=== PATIENT | male | born 1995 | race Hispanic/Latino ===

== ENCOUNTER 2016-09-22 10:14 | Emergency (ER) | payer SELFPAY ==
[~2016-09-22] VITALS: Ht 170.2 cm; Wt 90.7 kg
[~2016-09-22 10:14] MED LIST: AUGMENTIN 500M500 MG PO; BLM PO; MEDROL DOSEPAK1 PAC PO; PEPCID40 MG PO; TESSALON PERLE100 MG PO
[2016-09-22 10:21] VITALS: BP 124/73
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
[2016-09-22] MEDS ORDERED: CYCLOBENZAPRINE5 M2 PO (11:15)
== END 2016-09-22 11:27 ==
LOC: ERH 10:14
DX: S46.811A Strain of other muscles, fascia and tendons at shoulder and upper arm level, right arm, initial encounter (principal); S06.0X0A Concussion without loss of consciousness, initial encounter; V03.10XA Pedestrian on foot injured in collision with car, pick-up truck or van in traffic accident, initial encounter

== ENCOUNTER 2016-10-07 11:44 | Emergency (ER) | payer OTHER ==
[~2016-10-07] VITALS: Ht 170.2 cm; Wt 92.5 kg
[~2016-10-07 11:44] MED LIST changes: +CYCLOBENZAPRINE5 M2 PO
[2016-10-07 11:48] VITALS: BP 125/80
--- NOTE | 2016-10-07 11:58 | ED GI/GU/ABDOMINAL COMPLAINT ---
History of Present Illness General Chief Complaint: Nausea, Vomiting, Diarrhea Stated Complaint: N/V, ABDOMINAL PAIN Source: patient, family Exam Limitations: language barrier Vital Signs & Intake/Output Vital Signs & Intake/Output Vital Signs Date Time Temp Pulse Resp B/P B/P Pulse O2 O2 Flow FiO2 Mean Ox Delivery Rate 10/07 1316 97 Room Air 10/07 1148 97.3 60 20 125/80 98 Room Air Allergies Coded Allergies: NO KNOWN ALLERGIES (UNKNOWN 10/07/16) Reconcile Medications No Known Home Medications Triage Note: PT TO ED C/O N/V, ABD PAIN SINCE LAST NIGHT. DENIES DIARRHEA. Triage Nurses Notes Reviewed? yes Duration: constant Timing: recent history Quality/Severity: aching Severity Numbers: 1 Activities at Onset: eating Prior Abdominal Problems: none HPI: Patient is a 21-year-old male with an unremarkable past medical history presents to emergency him saying that yesterday for lunch patient ate pizza at approximately one hour later had acute onset of nausea and multiple episodes in last 24 hours of emesis nonbloody nonbilious. Patient's last bowel movement was today normal stool no diarrhea and no black no melena. Patient denies any significant alcohol or NSAID use. Denies any fever chills shortness of breath. Currently complains of 1/10 epigastric tenderness. Patient has not been able to tolerate anything by mouth since. (EMILY ALCOCER) Past History Travel History Traveled to [place] past 21 day No Medical History Any Pertinent Medical History? 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 No (EMILY ALCOCER) Review of Systems Review of Systems Constitutional: Reports: no symptoms. EENTM: Reports: no symptoms. Respiratory: Reports: no symptoms. Cardiovascular: Reports: no symptoms. GI: Reports: see HPI, nausea. Genitourinary: Reports: no symptoms. Musculoskeletal: Reports: no symptoms. Skin: Reports: no symptoms. Neurological/Psychological: Reports: no symptoms. Hematologic/Endocrine: Reports: no symptoms. Immunologic/Allergic: Reports: no symptoms. All Other Systems: Reviewed and Negative (EMILY ALCOCER) Physical Exam Physical Exam General Appearance: no apparent distress, alert, comfortable Gastrointestinal: normal bowel sounds, soft, EPIGASTRIC MILD TENDERNESS NO RIGHT LOWER QUADRANT PAIN NO RIGHT UPPER QUADRANT PAIN NO PERITONEAL SIGNS NO REBOUND TENDERNESS Comments: HEENT: Normal EENT exam Neck: Supple, no lymphadenopathy, normal range of motion without pain or tenderness Back: Nontender, no CVA tenderness. Cardiovascular: Regular rate and rhythms no murmurs rubs or gallops, normal JVP Respiratory: Chest nontender. No respiratory distress.breath sounds clear to auscultation bilaterally Extremity: No edema, no calf tenderness to palpation, normal and equal pulses. Neuro: Alert oriented x3, motor sensory normal, Skin: No appreciable rash on exposed skin, skin is warm and dry. Psych: Mood and affect is normal, memory and judgment is normal. Core Measures ACS in differential dx? No Severe Sepsis Present: No Septic Shock Present: No (EMILY ALCOCER) Progress Differential Diagnosis: AAA, AMI, appendicitis, biliary colic, bowel obstruction , colon cancer, cholecystitis, diverticulitis, epididymitis, esophageal varices, gastritis, hepatitis, hernia, hemorrhoids, ischemic bowel, inflamm bowel dis, orchitis, pancreatitis, prostatitis, peptic ulcer, PUD/GERD, perforated viscous, pyelonephritis, SBO, testicular torsion, ureterolithiasis, urinary retention, urethritis, UTI/pyelo Plan of Care: Orders Procedure Date/time Status LIPASE 10/07 1229 Complete COMPREHENSIVE METABOLIC PANEL 10/07 1229 Complete CBC WITHOUT DIFFERENTIAL 10/07 1229 Complete AMYLASE 10/07 1229 Complete Laboratory Tests 10/07/16 1250: Anion Gap 9, Estimated GFR > 60, BUN/Creatinine Ratio 15.5, Glucose 88, Calcium 8.8, Total Bilirubin 0.7, AST 38, ALT 85 H, Alkaline Phosphatase 86, Total Protein 7.0, Albumin 4.0, Globulin 3.0, Albumin/Globulin Ratio 1.3, Amylase 79, Lipase 110, CBC w Diff NO MAN DIFF REQ, RBC 5.49, MCV 87.3, MCH 29.5, RDW 12.8, MPV 8.6, Gran % 57.0, Lymphocytes % 31.3, Monocytes % 7.8, Eosinophils % 3.6, Basophils % 0.3, Absolute Granulocytes 4.0, Absolute Lymphocytes 2.2, Absolute Monocytes 0.5, Absolute Eosinophils 0.3, Absolute Basophils 0, PUBS MCHC 33.8 Patient currently is resting comfortable and denies any nausea and has minimal pain complaints. Patient was offered pain medications and declined. Prior to medications administered of normal saline and Zofran patient was not in his room and most likely had eloped from the emergency room. After approximately one hour patient still was not in his room Blood work was unremarkable. (EMILY ALCOCER) Initial ED EKG: none (EMILY ALCOCER) Departure Departure Disposition: ER WALKOUT Condition: Stable Clinical Impression Primary Impression: Gastritis Referrals: PATIENT HAS NO PRIMARY CARE DR (PCP/Family) Departure Forms: Customer Survey General Discharge Information Prescriptions: Current Visit Scripts No Known Home Medications (EMILY ALCOCER) PA/PHARMACOMETRICIAN Co-Sign Statement Statement: ED Attending supervision documentation- [] I saw and evaluated the patient. I have also reviewed all the pertinent lab results and diagnostic results. I agree with the findings and the plan of care as documented in the PA's/PHARMACOMETRICIAN's documentation. [X] I have reviewed the ED Record and agree with the PA's/PHARMACOMETRICIAN's documentation. [] Additions or exceptions (if any) to the PAs/PHARMACOMETRICIAN's note and plan are summarized below: [] (SAMUEL STOUT DO)
[2016-10-07 12:58] LABS: ABSOLUTE BASOPHIL COUNT 0 /CUMM (0.0-0.2); ABSOLUTE EOSINOPHIL COUNT 0.3 /CUMM (0.0-0.7); ABSOLUTE LYMPH COUNT 2.2 /CUMM (1.2-3.4); ABSOLUTE MONOCYTE COUNT 0.5 /CUMM (0.10-0.60); BASOPHIL % 0.3 % (0.0-2.0); EOSINOPHIL % 3.6 % (0-5); HEMATOCRIT 47.9 % (42-52); MEAN CORPUSCULAR HGB 29.5 PG (27.0-31.0); MEAN CORPUSCULAR HGB CONC 33.8 G/DL (33.0-37.0); MEAN CORPUSCULAR VOLUME 87.3 FL (80.0-94.0); MEAN PLATELET VOLUME 8.6 FL (7.4-10.4); PLATELET COUNT 170 /CUMM (130-400); RBC DISTRIBUTION WIDTH 12.8 % (11.5-14.5); RED BLOOD CELL CT 5.49 /CUMM (4.70-6.10); WHITE BLOOD CELL COUNT 6.9 /CUMM (4.8-10.8)
== END 2016-10-07 14:50 | disposition admitted as inpatient to this hospital (09) ==
LOC: ERH 11:44
PROVIDERS: Physician Assistant
DX: K29.70 Gastritis, unspecified, without bleeding (principal)

== ENCOUNTER 2017-10-19 21:12 | Emergency (ER) | payer SELFPAY ==
[~2017-10-19 21:12] MED LIST changes: +BENADRYL25 MG PO; +HYDROCORTISONE30 GM TOP; +LOMOTIL 2.5-0.1 EACH PO; +PEPCID20 M1 PO; +PREDNISONE10 M2 PO
[2017-10-19 23:19] LABS: ABSOLUTE BASOPHIL COUNT 0 /CUMM (0.0-0.2); ABSOLUTE EOSINOPHIL COUNT 0.3 /CUMM (0.0-0.7); ABSOLUTE LYMPH COUNT 1.9 /CUMM (1.2-3.4); ABSOLUTE MONOCYTE COUNT 0.8 /CUMM (0.10-0.60); BASOPHIL % 0.2 % (0.0-2.0); EOSINOPHIL % 3.7 % (0-5); HEMATOCRIT 45.5 % (42-52); MEAN CORPUSCULAR HGB 29.9 PG (27.0-31.0); MEAN CORPUSCULAR HGB CONC 34.2 G/DL (33.0-37.0); MEAN CORPUSCULAR VOLUME 87.3 FL (80.0-94.0); MEAN PLATELET VOLUME 8.7 FL (7.4-10.4); PLATELET COUNT 186 /CUMM (130-400); RBC DISTRIBUTION WIDTH 12.6 % (11.5-14.5); RED BLOOD CELL CT 5.21 /CUMM (4.70-6.10); WHITE BLOOD CELL COUNT 9.1 /CUMM (4.8-10.8)
--- NOTE | 2017-10-19 23:31 | ED GENERAL ADULT ---
History of Present Illness General Chief Complaint: General Adult Stated Complaint: FEVER,COUGHING,DIARRHEA X 3DAYS Source: patient Exam Limitations: no limitations Vital Signs & Intake/Output Vital Signs & Intake/Output Vital Signs Date Time Temp Pulse Resp B/P B/P Pulse O2 O2 Flow FiO2 Mean Ox Delivery Rate 10/20 0041 97.6 90 18 138/82 99 Room Air 10/19 2337 97 10/19 2119 86 151/102 10/19 2116 98.7 17 98 Room Air ED Intake and Output 10/20 0000 10/19 1200 Intake Total Output Total Balance Patient 200 lb Weight Weight Reported by Patient Measurement Method Allergies Coded Allergies: NO KNOWN ALLERGIES (UNKNOWN 10/07/16) Triage Note: PT TO ED WITH C/O DIARRHEA FOR THE PAST COUPLE WEEKS, STATES HAS BEEN SEEN FOR SAME, BUT NOW ALSO HAS FEVERS/CHILLS AND GENERALIZED BODY ACHES. Triage Nurses Notes Reviewed? yes Onset: Abrupt Duration: day(s): (3), constant, continues in ED Timing: single episode today Injury Environment: home Severity: mild, moderate No Modifying Factors: none Associated Symptoms: cough HPI: 22-year-old male with no medical history presents for evaluation of cough, congestion, shortness of breath and diarrhea. Patient states that the diarrhea has been ongoing for greater than 6 months now. He reports 3 or 4 episodes of watery diarrhea daily. He denies any blood, recent antibiotic use, sick contacts or recent travel. He has no abdominal pain nausea or vomiting. He is eating and drinking normally. Were brought him in today was the cough shortness of breath congestion and fever. He reports fevers at home which she has been taking DayQuil for with only mild improvement. Cough is productive sputum worse at night causing difficulty sleeping. He denies any chest pain, hemoptysis, lower extremity edema. He does not smoke. (Renato GUAJARDO,Tito) Reconcile Medications Albuterol Sulfate (Proair Hfa) 90 MCG HFA.AER.AD 2 PUF INH Q4-6 PRN PRN COUGH SOB Azithromycin (Zithromax) 250 MG TABLET 1 DP PO AD BRONCHITIS 2 the first day followed by 1 for days 2-5 Codeine Phosphate/Guaifenesi (Cheratussin AC Syrup) 10 MG-100 MG/5 ML LIQUID 10 ML PO Q6H PRN COUGH diphenhydrAMINE HCl (Benadryl) 25 MG CAPSULE 1 CAP PO QPM PRN ALLERGIC REACTION Diphenoxylate HCl/Atropine (Lomotil 2.5-0.025 MG Tablet) 2.5 MG-0.025 MG TABLET 1 TAB PO 4 TIMES/DAY PRN DIARRHEA Famotidine (Pepcid) 20 MG TABLET 1 TAB PO DAILY ALLERIC REACTION Hydrocortisone 2.5 % CREAM..G. 1 MARTÍN TOP BID PRN ALLERGIC REACTION Prednisone 10 MG TABLET 1 TAB PO AD ALLERGIC REACTION DAY1/DAY2 THREE TABS DAY3/DAY4 TWO TABS DAY 5 ONE TAB (Karie MACK,Trell Miller) Past History Travel History Traveled to [place] past 21 day No Medical History Any Pertinent Medical History? 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 No (Tito Bailey) Review of Systems Review of Systems Constitutional: Reports: fever, malaise, weakness. EENTM: Reports: nasal congestion. Respiratory: Reports: see HPI, cough, short of breath, sputum production, wheezing. Cardiovascular: Reports: no symptoms. GI: Reports: diarrhea. Genitourinary: Reports: no symptoms. Musculoskeletal: Reports: no symptoms. Skin: Reports: no symptoms. Neurological/Psychological: Reports: no symptoms. Hematologic/Endocrine: Reports: no symptoms. Immunologic/Allergic: Reports: no symptoms. All Other Systems: Reviewed and Negative (Tito Bailey) Physical Exam Physical Exam General Appearance: well developed/nourished, no apparent distress, alert, awake Head: atraumatic, normal appearance Eyes: Bilateral: normal appearance, PERRL, EOMI. Ears, Nose, Throat: normal pharynx, normal ENT inspection, hearing grossly normal Neck: normal inspection, supple, full range of motion Respiratory: chest non-tender, no respiratory distress, wheezing (mild end expiratory) Cardiovascular: regular rate/rhythm, normal peripheral pulses Peripheral Pulses: 2+ radial (R), 2+ radial (L) Gastrointestinal: normal bowel sounds, soft, non-tender, no organomegaly Back: normal inspection, normal range of motion, no vertebral tenderness Extremities: normal inspection, normal range of motion, no edema Neurologic/Psych: no motor/sensory deficits, awake, alert, oriented x 3, normal gait, normal mood/affect Skin: intact, normal color, warm/dry Lymphatic: no anterior cervical hector Core Measures ACS in differential dx? No CVA/TIA Diagnosis: No Sepsis Present: No Sepsis Focused Exam Completed? No (Renato GUAJARDO,Tito) Progress Differential Diagnoses I considered the following diagnoses in my evaluation of the patient: [Acute bronchitis, pneumonia, asthma exacerbation, viral gastritis, inflammatory bowel disease, bacterial gastritis, celiac disease, food allergy] Plan of Care: Orders Procedure Date/time Status LIPASE 10/19 2206 Complete COMPREHENSIVE METABOLIC PANEL 10/19 2206 Complete CBC WITHOUT DIFFERENTIAL 10/19 2206 Complete Laboratory Tests 10/19/172308: Anion Gap 11, Estimated GFR > 60, BUN/Creatinine Ratio 16.4, Glucose 104 H, Calcium 8.8, Total Bilirubin 0.9, AST 42, ALT 48, Alkaline Phosphatase 77, Total Protein 7.1, Albumin 3.8, Globulin 3.3, Albumin/Globulin Ratio 1.2, Lipase 73, CBC w Diff NO MAN DIFF REQ, RBC 5.21, MCV 87.3, MCH 29.9, MCHC 34.2, RDW 12.6, MPV 8.7, Gran % 66.0, Lymphocytes % 21.2, Monocytes % 8.9, Eosinophils % 3.7, Basophils % 0.2, Absolute Granulocytes 6.0, Absolute Lymphocytes 1.9, Absolute Monocytes 0.8 H, Absolute Eosinophils 0.3, Absolute Basophils 0 10/19/172206: Urine Color Cancelled, Urine Clarity Cancelled, Urine pH Cancelled, Ur Specific [place] Cancelled, Urine Protein Cancelled, Urine Ketones Cancelled, Urine Nitrite Cancelled, Urine Bilirubin Cancelled, Urine Urobilinogen Cancelled, Ur Leukocyte Esterase Cancelled, Ur Microscopic Cancelled, Urine Hemoglobin Cancelled, Urine Glucose Cancelled Patient seen and evaluated. He is here with diarrhea which has been chronic for several months now. He is also reporting cough congestion and fever and shortness of breath. On exam he has some wheezing present bilaterally. He is afebrile in the ER. No evidence of hypoxia or cyanosis. Patient was given a DuoNeb labs chest x-ray ordered. Patient was also given IV fluids. Blood work is not showing any acute findings. Chest x-ray is clear. Patient reports significant improvement after DuoNeb. On reevaluation his lungs are now clear. He was unable to provide a stool sample for culture here. Patient will be treated for acute bronchitis with Zithromax, pro-air and Cheratussin. He'll also be referred to gastroenterology for further evaluation of his diarrhea. Discussed return precautions in detail patient agrees the plan Diagnostic Imaging: Viewed by Me: Radiology Read. Discussed w/RAD: Radiology Read. CXR Impression: PATIENT: OWEN ALLEN PRESENT AGE: 22 PATIENT ACCOUNT NO: [id number] : 95 LOCATION: [facility] ORDERING PHYSICIAN: Tito GUAJARDO SERVICE DATE: 10/19/17 EXAM TYPE: RAD - XRY-CHEST XRAY, TWO VIEWS EXAMINATION: XR CHEST CLINICAL INFORMATION: Cough, shortness of breath COMPARISON: 02/14/2015 TECHNIQUE: 2 views of the chest were obtained. FINDINGS: The lungs are clear with no focal consolidation. No evidence of pneumothorax, pulmonary edema, or pleural effusions. The cardiomediastinal silhouette is unremarkable. No acute osseous findings. IMPRESSION: No acute cardiopulmonary findings. DICTATED BY: Keo Brandt MD DATE/TIME DICTATED:04/26 COMPUTER PROGRAMMING PROFESSOR:DAVID DATE/TIME TRANSCRIBED:10/19/172349 CONFIDENTIAL, DO NOT COPY WITHOUT APPROPRIATE AUTHORIZATION. <Electronically signed in Other Vendor System> Initial ED EKG: none (Renato GUAJARDO,Tito) Departure Departure Disposition: HOME OR SELF CARE Condition: Stable Clinical Impression Primary Impression: Acute bronchitis Qualifiers: Bronchitis organism: unspecified organism Qualified Code: J20.9 - Acute bronchitis, unspecified Referrals: Patient Has No Primary Care Dr (PCP/Family) Jose Munoz MD Additional Instructions: Rest and drink plenty of fluids. Eat high fiber foods. Tylenol and ibuprofen for pain or fevers. Take antibiotics as directed for the full course. Cheratussin for cough this may cause drowsiness. Also use pro-air inhaler 2 puffs every 4-6 hours as needed for cough or shortness of breath. Follow-up with provided sharepoint web developer for further evaluation of her diarrhea. Monitor symptoms and return with any concerns. Departure Forms: Customer Survey General Discharge Information Prescriptions: Current Visit Scripts Codeine Phosphate/Guaifenesi (Cheratussin AC Syrup) 10 ML PO Q6H PRN COUGH #240 ML Albuterol Sulfate (Proair Hfa) 2 PUF INH Q4-6 PRN PRN COUGH SOB #1 INHAL Azithromycin (Zithromax) 1 DP PO AD #6 TAB 2 the first day followed by 1 for days 2-5 (Tito Bailey) PA/NITRO MAN Co-Sign Statement Statement: ED Attending supervision documentation- [] I saw and evaluated the patient. I have also reviewed all the pertinent lab results and diagnostic results. I agree with the findings and the plan of care as documented in the PA's/NITRO MAN's documentation. [x] I have reviewed the ED Record and agree with the PA's/NITRO MAN's documentation. [] Additions or exceptions (if any) to the PAs/NITRO MAN's note and plan are summarized below: [] (Karie MACK,Trell Miller) Critical Care Note Critical Care Note Critical Care Time: non-applicable (Tito Bailey)
--- NOTE | 2017-10-19 23:55 | RADIOLOGY REPORT ---
EXAMINATION: XR CHEST CLINICAL INFORMATION: Cough, shortness of breath COMPARISON: 02/14/2015 TECHNIQUE: 2 views of the chest were obtained. FINDINGS: The lungs are clear with no focal consolidation. No evidence of pneumothorax, pulmonary edema, or pleural effusions. The cardiomediastinal silhouette is unremarkable. No acute osseous findings. IMPRESSION: No acute cardiopulmonary findings.
[2017-10-20] MEDS ORDERED: ZITHROMAX250 M2 PO (00:11)
[2017-10-20] MEDS ORDERED: PROAIR HFA8.5 GM INH (00:11)
[2017-10-20] MEDS ORDERED: CHERATUSSIN AC118 M1 PO (00:11)
[2017-10-20 00:41] VITALS: BP 138/82
== END 2017-10-20 00:42 ==
LOC: ERH 21:12
PROVIDERS: Physician Assistant Medical
DX: J20.9 Acute bronchitis, unspecified (principal); R05 Cough; R19.7 Diarrhea, unspecified
CPT/HCPCS: 1263; 1395; 71046; 96360

== ENCOUNTER 2017-12-27 04:19 | Emergency (ER) | payer SELFPAY ==
[~2017-12-27] VITALS: Ht 170.2 cm; Wt 95.3 kg
[~2017-12-27 04:19] MED LIST changes: +CHERATUSSIN AC118 M1 PO; +PROAIR HFA8.5 GM INH; +ZITHROMAX250 M2 PO
--- NOTE | 2017-12-27 04:53 | ED GI/GU/ABDOMINAL COMPLAINT ---
History of Present Illness General Chief Complaint: Abdominal Pain/Flank Pain Stated Complaint: LOWER ABD PAIN Source: patient Exam Limitations: language barrier, communicating with patient in maltese Vital Signs & Intake/Output Vital Signs & Intake/Output Vital Signs Date Time Temp Pulse Resp B/P B/P Pulse O2 O2 Flow FiO2 Mean Ox Delivery Rate 12/27 0542 97.9 12/27 0436 97.9 57 18 127/72 98 Room Air Allergies Coded Allergies: No Known Allergies (12/27/17) Reconcile Medications Albuterol Sulfate (Proair Hfa) 90 MCG HFA.AER.AD 2 PUF INH Q4-6 PRN PRN COUGH SOB Azithromycin (Zithromax) 250 MG TABLET 1 DP PO AD BRONCHITIS 2 the first day followed by 1 for days 2-5 Codeine Phosphate/Guaifenesi (Cheratussin AC Syrup) 10 MG-100 MG/5 ML LIQUID 10 ML PO Q6H PRN COUGH diphenhydrAMINE HCl (Benadryl) 25 MG CAPSULE 1 CAP PO QPM PRN ALLERGIC REACTION Diphenoxylate HCl/Atropine (Lomotil 2.5-0.025 MG Tablet) 2.5 MG-0.025 MG TABLET 1 TAB PO 4 TIMES/DAY diarrhea twenty...[id number] Diphenoxylate HCl/Atropine (Lomotil 2.5-0.025 MG Tablet) 2.5 MG-0.025 MG TABLET 1 TAB PO 4 TIMES/DAY PRN DIARRHEA Famotidine (Pepcid) 20 MG TABLET 1 TAB PO DAILY ALLERIC REACTION Hydrocortisone 2.5 % CREAM..G. 1 MARTÍN TOP BID PRN ALLERGIC REACTION Ondansetron (Zofran Odt) 4 MG TAB.RAPDIS 1 TAB SL TID PRN nausea Prednisone 10 MG TABLET 1 TAB PO AD ALLERGIC REACTION DAY1/DAY2 THREE TABS DAY3/DAY4 TWO TABS DAY 5 ONE TAB Triage Note: TRIAGE: PATIENT TO ER FROM HOME REPORTING LOWER ABD PAIN W/ +N/V/D. BEING EVALUATED BY MD TIWARI IN TRIAGE. PRIMARY LANGUAGE BELIZEAN. LAST VOMITTED 2 HOURS AGO. Triage Nurses Notes Reviewed? yes Onset: Gradual Duration: day(s):, waxing and waning Timing: recent history Quality/Severity: cramping Location: generalized abdomen Radiation: no radiation Prior Abdominal Problems: none Modifying Factors: Worsens With: defecating, palpation, vomiting. Associated Symptoms: abdominal pain, diarrhea, nausea/vomiting HPI: 22 yo gentleman in prior good health with 1 week history of nausea, vomiting, diarrhea and diffuse lower abdominal tenderness. He notes he last vomited 2 hours ago and last had diarrhea 1 hour ago. He notes no fever, dysuria, chills, chest pain. He does not identify an etiology. He is otherwise well. Past History Travel History Traveled to [place] past 21 day No Medical History Any Pertinent Medical History? see below for history Neurological: NONE EENT: NONE Cardiovascular: NONE Respiratory: NONE Gastrointestinal: NONE Hepatic: NONE Renal: NONE Musculoskeletal: NONE Psychiatric: NONE Endocrine: NONE Blood Disorders: NONE Cancer(s): NONE QC ANALYST/Reproductive: NONE Surgical History Surgical History: none, N Psychosocial History What is your primary language Andorran Tobacco Use: Refused to answer Family History Hx Contributory? No Review of Systems Review of Systems Constitutional: Reports: no symptoms. EENTM: Reports: no symptoms. Respiratory: Reports: no symptoms. Cardiovascular: Reports: no symptoms. GI: Reports: no symptoms. Genitourinary: Reports: no symptoms. Musculoskeletal: Reports: no symptoms. Skin: Reports: no symptoms. Neurological/Psychological: Reports: no symptoms. Hematologic/Endocrine: Reports: no symptoms. Immunologic/Allergic: Reports: no symptoms. All Other Systems: Reviewed and Negative Physical Exam Physical Exam General Appearance: well developed/nourished, mild distress Head: atraumatic, normal appearance Eyes: Bilateral: normal appearance. Ears, Nose, Throat, Mouth: hearing grossly normal, moist mucous membrane Neck: normal inspection, supple, full range of motion Respiratory: normal breath sounds, chest non-tender, no respiratory distress, quiet respiration, lungs clear Cardiovascular: regular rate/rhythm Gastrointestinal: normal bowel sounds, soft, right and left lower quadrant tenderness to palpation. no rebound. no guarding. Back: normal inspection Extremities: normal range of motion Neurologic/Psych: no motor/sensory deficits, awake, alert, oriented x 3 Skin: intact, normal color, warm/dry Core Measures ACS in differential dx? No Sepsis Present: No Sepsis Focused Exam Completed? No Progress Differential Diagnosis: appy vs gastro vs chron's vs other. Plan of Care: Orders Procedure Date/time Status LIPASE 12/27 422 Complete HEPATIC FUNCTION PANEL 12/27 422 Complete CBC WITHOUT DIFFERENTIAL 12/27 422 Complete BASIC METABOLIC PANEL 12/27 422 Complete AMYLASE 12/27 422 Complete Laboratory Tests 12/27/17 0450: Anion Gap 9, Estimated GFR > 60, BUN/Creatinine Ratio 19.0, Glucose 99, Calcium 9.1, Total Bilirubin 0.4, Direct Bilirubin 0.3, AST 42, ALT 75 H, Alkaline Phosphatase 100, Total Protein 7.4, Albumin 4.2, Amylase 76, Lipase 116, CBC w Diff NO MAN DIFF REQ, RBC 5.52, MCV 86.6, MCH 29.5, MCHC 34.1, RDW 12.6, MPV 9.1 , Gran % 46.1, Lymphocytes % 41.4, Monocytes % 8.5, Eosinophils % 3.5, Basophils % 0.5, Absolute Granulocytes 3.2, Absolute Lymphocytes 2.9, Absolute Monocytes 0.6, Absolute Eosinophils 0.2, Absolute Basophils 0 12/27/17 042: Urine Color Cancelled, Urine Clarity Cancelled, Urine pH Cancelled, Ur Specific [place] Cancelled, Urine Protein Cancelled, Urine Ketones Cancelled, Urine Nitrite Cancelled, Urine Bilirubin Cancelled, Urine Urobilinogen Cancelled, Ur Leukocyte Esterase Cancelled, Ur Microscopic Cancelled, Urine Hemoglobin Cancelled, Urine Glucose Cancelled Diagnostic Imaging: Viewed by Me: CT Scan. Discussed w/RAD: CT Scan. Radiology Impression: PATIENT: OWEN ALLEN PRESENT AGE: 22 PATIENT ACCOUNT NO: [id number] : 95 LOCATION: [facility] ORDERING PHYSICIAN: Trell Tiwari MD SERVICE DATE: 12/27/17 EXAM TYPE: CAT - CT ABD & PELVIS W/O IV CONTRAS EXAMINATION: CT ABDOMEN AND PELVIS WITHOUT CONTRAST CLINICAL INFORMATION: Lower abdominal pain. COMPARISON: None. TECHNIQUE: Contiguous axial thin section helical images of the abdomen and pelvis were performed without oral or IV contrast. The data set was reformatted in the coronal and sagittal planes and reviewed on an independent workstation. DLP: 415 mGy-cm. FINDINGS: The visualized lung bases are clear. The visualized portions of the heart are unremarkable. The liver is of normal size and attenuation without focal lesions nor intrahepatic biliary ductal dilation. A normal gallbladder is identified. There is no wall thickening or discernible pericholecystic fluid. The spleen, pancreas, adrenal glands are unremarkable. Both kidneys are of normal size and attenuation without hydronephrosis or nephrolithiasis. There is no abdominal free fluid. There is neither mesenteric nor retroperitoneal lymphadenopathy. Normal unopacified loops of small and large bowel are identified. A normal appendix is identified. There is no pelvic free fluid. The urinary bladder is unremarkable. There is neither pelvic nor inguinal lymphadenopathy. Bone windows: Neither sclerotic nor lytic bone lesions are identified. IMPRESSION: No evidence for acute abdominal or pelvic inflammatory or infectious processes. Neither hydronephrosis nor nephrolithiasis. DICTATED BY : Froilan Pedro MD DATE/TIME DICTATED:12/27/17548 WOOD CARVING MACHINE OPERATOR:DAVID DATE/TIME TRANSCRIBED:12/27/17548 CONFIDENTIAL, DO NOT COPY WITHOUT APPROPRIATE AUTHORIZATION. <Electronically signed in Other Vendor System> SIGNED BY: Froilan Pedro MD 12/27/17554 Initial ED EKG: none Departure Departure Disposition: HOME OR SELF CARE Condition: Stable Clinical Impression Primary Impression: Abdominal pain Secondary Impressions: Gastroenteritis Referrals: Patient Has No Primary Care Dr (PCP/Family) Departure Forms: Customer Survey General Discharge Information Prescriptions: Current Visit Scripts Ondansetron (Zofran Odt) 1 TAB SL TID PRN nausea #10 TAB Diphenoxylate HCl/Atropine (Lomotil 2.5-0.025 MG Tablet) 1 TAB PO 4 TIMES/DAY #20 TAB twenty...[id number] Comments 12/27/17, 6:02am... pt feels better, sleeping comfortably... labs and ct scan benign. pt safe for discharge. rx for lomotil and zofran given. close follow up advised.
[2017-12-27 05:01] LABS: ABSOLUTE BASOPHIL COUNT 0 /CUMM (0.0-0.2); ABSOLUTE EOSINOPHIL COUNT 0.2 /CUMM (0.0-0.7); ABSOLUTE GRANULOCYTE CT 3.2 /CUMM (1.4-6.5); ABSOLUTE LYMPH COUNT 2.9 /CUMM (1.2-3.4); ABSOLUTE MONOCYTE COUNT 0.6 /CUMM (0.10-0.60); BASOPHIL % 0.5 % (0.0-2.0); EOSINOPHIL % 3.5 % (0-5); GRANULOCYTE % 46.1 % (42.2-75.2); HEMATOCRIT 47.8 % (42-52); MEAN CORPUSCULAR HGB 29.5 PG (27.0-31.0); MEAN CORPUSCULAR HGB CONC 34.1 G/DL (33.0-37.0); MEAN CORPUSCULAR VOLUME 86.6 FL (80.0-94.0); MEAN PLATELET VOLUME 9.1 FL (7.4-10.4); PLATELET COUNT 191 /CUMM (130-400); RBC DISTRIBUTION WIDTH 12.6 % (11.5-14.5); RED BLOOD CELL CT 5.52 /CUMM (4.70-6.10)
--- NOTE | 2017-12-27 05:55 | CT SCAN REPORT ---
EXAMINATION: CT ABDOMEN AND PELVIS WITHOUT CONTRAST CLINICAL INFORMATION: Lower abdominal pain. COMPARISON: None. TECHNIQUE: Contiguous axial thin section helical images of the abdomen and pelvis were performed without oral or IV contrast. The data set was reformatted in the coronal and sagittal planes and reviewed on an independent workstation. DLP: 415 mGy-cm. FINDINGS: The visualized lung bases are clear. The visualized portions of the heart are unremarkable. The liver is of normal size and attenuation without focal lesions nor intrahepatic biliary ductal dilation. A normal gallbladder is identified. There is no wall thickening or discernible pericholecystic fluid. The spleen, pancreas, adrenal glands are unremarkable. Both kidneys are of normal size and attenuation without hydronephrosis or nephrolithiasis. There is no abdominal free fluid. There is neither mesenteric nor retroperitoneal lymphadenopathy. Normal unopacified loops of small and large bowel are identified. A normal appendix is identified. There is no pelvic free fluid. The urinary bladder is unremarkable. There is neither pelvic nor inguinal lymphadenopathy. Bone windows: Neither sclerotic nor lytic bone lesions are identified. IMPRESSION: No evidence for acute abdominal or pelvic inflammatory or infectious processes. Neither hydronephrosis nor nephrolithiasis.
[2017-12-27] MEDS ORDERED: LOMOTIL 2.5-0.1 EACH PO (06:01)
[2017-12-27] MEDS ORDERED: ZOFRAN ODT4 M1 SL (06:01)
[2017-12-27 06:11] VITALS: BP 143/87
== END 2017-12-27 06:20 ==
LOC: ERH 04:19
PROVIDERS: Pediatrics
DX: K52.9 Noninfective gastroenteritis and colitis, unspecified (principal); R11.2 Nausea with vomiting, unspecified; R19.7 Diarrhea, unspecified; R10.30 Lower abdominal pain, unspecified
CPT/HCPCS: 74176; 96361; 96374; 96375; J0131; J1885; J2405